=== PATIENT | female | born 1990 | race Hispanic/Latino ===

== ENCOUNTER 2020-10-21 06:19 | Inpatient (IN) | payer MEDICAID ==
[~2020-10-21] VITALS: Ht 157.5 cm; Wt 82.6 kg
[2020-10-21] MEDS ORDERED: LACTATED RINGERS 1000ML 1,000 ML IV PRN (06:30)
[2020-10-21 07:14] LABS: APPEARANCE,URINE Clear (CLEAR); BILIRUBIN,URINE Negative (NEGATIVE); COLOR,URINE Yellow (YELLOW); GLUCOSE, URINE (UA) Negative (NEGATIVE); KETONES,URINE Trace mg/dL (NEGATIVE); LEUKOCYTE ESTERASE ,URINE Negative (NEGATIVE); NITRATE,URINE Negative (NEGATIVE); OCCULT BLOOD,URINE Negative (NEGATIVE); PROTEIN,URINE Negative (NEGATIVE)
[2020-10-21 07:24] LABS: HEMATOCRIT 34.3 % (36-48); MEAN CORPUSCULAR HEMOGLOBIN 31.7 pg (27.0-33.0); MEAN CORPUSCULAR HGB CONC 34.4 g/dL (32.0-36.0); MEAN CORPUSCULAR VOLUME 92.2 fL (79-99); RED BLOOD CELL COUNT(AUTO) 3.72 MIL/uL (4.00-5.50); RED CELL DISTRIBUTION WIDTH 13.5 % (11.0-15.5); WHITE BLOOD COUNT (AUTO) 11.7 K/uL (4.8-10.8)
[2020-10-21 07:37] LABS: BACTERIA,URINE Rare /HPF (None Seen); RBC,URINE 0-1 /HPF (0-1); SQUAMOUS EPITHELIAL CELL,UR Few /HPF (0-2); WBC,URINE 0-1 /HPF (0-1)
[2020-10-21 08:36] VITALS: BP 95/56
[2020-10-21] MEDS ORDERED: OXYTOCIN-LR 20 UNITS/1000 ML 1,000 ML IV SCH ×2 (09:15→16:00)
[2020-10-21] MEDS ORDERED: LACTATED RINGERS 500 ML 500 ML IV PRN (09:15)
[2020-10-21] MEDS ORDERED: MEPERIDINE-PF 50 MG/ML SYG IVP PRN (09:15)
[2020-10-21] MEDS ORDERED: PROMETHAZINE HCL 25 MG/ML 1ML AMPULE IM PRN (09:15)
[2020-10-21] MEDS ORDERED: EPHEDRINE SULFATE 50 MG/ML AMPULE IVP PRN (09:15)
[2020-10-21] MEDS ORDERED: NALOXONE HCL 0.4 MG/1 ML ML IV PRN (09:15)
[2020-10-21] MEDS ORDERED: ROPIVACAINE 0.2% 100ML VIAL 100 ML EP PRN (09:15)
[2020-10-21] MEDS ORDERED: OXYTOCIN-LR 20 UNITS/1000 ML 1,000 ML IV ONE (09:17)
[2020-10-21] MEDS ORDERED: LIDOCAINE HCL 1% 20 ML VIAL ONE (15:17)
[2020-10-21] MEDS ORDERED: BENZOCAINE/LANOLIN/ALOE VERA 60 ML AEROSOL TP PRN (16:00)
[2020-10-21] MEDS ORDERED: ACETAMINOPHEN WITH CODEINE 1 TAB TAB PO PRN (16:00)
[2020-10-21] MEDS ORDERED: WITCH HAZEL 1 PAD TP PRN (16:00)
[2020-10-21] MEDS ORDERED: LANOLIN 30GM OINTMENT TP PRN (16:00)
[2020-10-21] MEDS ORDERED: MEASLES/MUMPS/RUBELLA VACCINE, LIVE 0.5 ML/VIAL SQ PRN (16:00)
[2020-10-21] MEDS ORDERED: ACETAMINOPHEN 325 MG TAB PO PRN (16:00)
[2020-10-21] MEDS ORDERED: DIPH,PERTUSS(ACELL),TET VAC/PF 0.5 ML VIAL IM PRN (16:00)
[2020-10-21] MEDS: IBUPROFEN 600 MG TABLET PO PRN (16:17)
[2020-10-21 17:56] VITALS: BP 102/69
[2020-10-21] MEDS ORDERED: PNV1TABL17 PO (18:17)
[2020-10-21 19:49] VITALS: BP 124/54
[2020-10-21 20:16] VITALS: BP 111/66
[2020-10-21] MEDS: DOCUSATE SODIUM 100 MG CAP PO SCH (21:01)
[2020-10-21 23:44] VITALS: BP 119/76
[2020-10-22] MEDS: IBUPROFEN 600 MG TABLET PO PRN ×3 (00:30→16:56)
[2020-10-22 03:09] VITALS: BP 110/72
[2020-10-22 06:13] LABS: HEPATITIS Bs ANTIGEN SCREEN P Negative (Negative)
[2020-10-22 07:50] VITALS: BP 101/59
[2020-10-22] MEDS: DOCUSATE SODIUM 100 MG CAP PO SCH (08:50)
[2020-10-22 11:20] VITALS: BP 113/58
[2020-10-22 16:45] VITALS: BP 124/76
== END 2020-10-22 17:45 | disposition home or self-care (01) | DRG 560 ==
LOC: LDH 06:19 → WSH 18:22
PROVIDERS: ADMIT Specialist; ATTEND Specialist
PROC: 3E0134Z Introduction of Serum, Toxoid and Vaccine into Subcutaneous Tissue, Percutaneous Approach (ICD-10-PCS; 2020-10-20)
PROC: 10E0XZZ Delivery of Products of Conception, External Approach (ICD-10-PCS; principal; 2020-10-21)
PROC: 3E033VJ Introduction of Other Hormone into Peripheral Vein, Percutaneous Approach (ICD-10-PCS; 2020-10-21)
PROC: 10907ZC Drainage of Amniotic Fluid, Therapeutic from Products of Conception, Via Natural or Artificial Opening (ICD-10-PCS; 2020-10-21)
PROC: 3E0234Z Introduction of Serum, Toxoid and Vaccine into Muscle, Percutaneous Approach (ICD-10-PCS; 2020-10-21)
DX: O62.3 Precipitate labor (principal); Z37.0 Single live birth; Z3A.39 39 weeks gestation of pregnancy; Z23 Encounter for immunization
CPT/HCPCS: 36415; 81001; 85027; 86592; 86850; 86900; 86901; 87340; 90715; A4606; G0378; J2175; J2550; J2590; J7120